=== PATIENT | female | born 1985 | race Two or more races ===

== ENCOUNTER 2024-12-23 03:58 | Emergency (ER) | payer OTHER ==
[~2024-12-23] VITALS: Ht 170.2 cm; Wt 61.2 kg
[2024-12-23] MEDS ORDERED: HYDROCODONE/CHLORPHEN P-STIREX 5 ML ML PO STA (06:02)
[2024-12-23] MEDS ORDERED: HYDROCODONE-CH115 ML PO ×2 (07:25→07:26)
== END 2024-12-23 07:42 ==
LOC: ER 04:16
DX: R05.8 Other specified cough (principal)